=== PATIENT | male | born 1970 | race Hispanic/Latino ===

== ENCOUNTER 2022-03-08 01:00 | Emergency (ER) | payer OTHER ==
[2022-03-08] MEDS ORDERED: Iopamidol 755 Mg/ML 100 ML Bottle IVPUSH ONE (02:42)
[2022-03-08] MEDS ORDERED: Nirmatrelvir/Ritonavir 300 MG/100 MG Dose Pack PO SCH (03:45)
== END 2022-03-08 03:50 | disposition home or self-care (01) ==
LOC: CC.ED 01:14
DX: U07.1 COVID-19 (principal); R07.89 Other chest pain; K21.9 Gastro-esophageal reflux disease without esophagitis; E66.9 Obesity, unspecified; Z68.30 Body mass index [BMI] 30.0-30.9, adult; Z79.899 Other long term (current) drug therapy
CPT/HCPCS: 36415; 71275; 80053; 84484; 85025; 85379; 86140; 93005; 99284; 99285; A9270-GY; Q9967; U0002

== ENCOUNTER 2022-04-05 13:41 | Emergency (ER) | payer OTHER ==
[2022-04-05] MEDS: Lidocaine 1% 5 ML VIAL INJECT ONE (14:11)
[2022-04-05] MEDS: Bacitracin/Neomycin/Polymyxin B Oint 0.9 GM U/D Packet TOP ONE (14:29)
[2022-04-05] MEDS ORDERED: Diphtheria,Pertussis(Acell),Tetanus Vaccine 0.5 ML Syringe IM ONE (19:41)
[2022-04-05] MEDS ORDERED: Bacitracin Oint 28.35 GM Tube TOP SCH (20:00)
[2022-04-06] MEDS ORDERED: Amoxicillin/Clavulanate K 875-125 MG Tab PO SCH (08:00)
== END 2022-04-05 14:50 | disposition home or self-care (01) ==
LOC: CC.ED 13:41
DX: S51.851A Open bite of right forearm, initial encounter (principal); I10 Essential (primary) hypertension; E66.9 Obesity, unspecified; Z68.29 Body mass index [BMI] 29.0-29.9, adult; W54.0XXA Bitten by dog, initial encounter
CPT/HCPCS: 12002; 73090-RT; 82947; 99283; A9270-GY